=== PATIENT | male | born 1970 | race Caucasian/White ===

== ENCOUNTER 2016-12-25 07:56 | Inpatient (IN) | payer MEDICARE, MEDICAID ==
[2016-12-25 08:01] VITALS: BMI 23.6
--- NOTE | 2016-12-25 10:27 | ED PDOC ---
HPI: Psych/Substance Abuse Time Seen by Provider: 12/25/16 08:21 Chief Complaint (Nursing): Psychiatric Evaluation Chief Complaint (Provider): depression History Per: Patient History/Exam Limitations: no limitations Onset/Duration Of Symptoms: Days (x3 ) Additional Complaint(s): Isael Valladares is a 46 y/o male, with a past medical history of diabetes, hypertension , depression, schizophrenia, and drug abuse, who presents to the emergency department via EMS complaining of being depressed and angry ongoing for x3 days. Patient denies any suicidal ideation, homicidal ideation, hallucinations or medical complaints. Patient went to the police department complaining of depression which prompted police to call EMS and have him transported to ED. PMD: none provided Past Medical History Reviewed: Historical Data, Nursing Documentation, Vital Signs Vital Signs: Last Vital Signs Temp 97 F L 12/25/16 08:00 Pulse 110 H 12/25/16 08:00 Resp BP 141/91 H 12/25/16 08:00 Pulse Ox 99 12/25/16 08:00 - Medical History PMH: Anxiety, Bipolar Disorder, Depression, Diabetes, HTN, Schizophrenia Denies: Hepatitis, HIV, Chronic Kidney Disease, Seizures, Sexually Transmitted Disease - Surgical History Surgical History: Appendectomy - Family History Family History: States: Unknown Family Hx - Immunization History Hx Tetanus Toxoid Vaccination: No Hx Influenza Vaccination: No Hx Pneumococcal Vaccination: No - Home Medications Home Medications: Ambulatory Orders Medication Instructions Recorded Divalproex [Depakote ER] 500 mg PO BID 12/25/16 Glimepiride [Amaryl] 1 mg PO DAILY 12/25/16 MetFORMIN [glucoPHAGE] 1,000 mg PO BID 12/25/16 Metoprolol Tartrate [Lopressor] 25 mg PO DAILY 12/25/16 OLANZapine [Zyprexa] 10 mg PO HS 12/25/16 Olanzapine [Zyprexa] 2.5 mg PO HS 12/25/16 traZODone [Desyrel] 100 mg PO HS 12/25/16 - Allergies Allergies/Adverse Reactions: Allergies Allergy/AdvReac Type Severity Reaction Status Date / Time FISH Allergy Mild RASH Verified 09/25/16 14:46 lithium Allergy RASH Verified 09/25/16 14:46 Review of Systems ROS Statement: Except As Marked, All Systems Reviewed And Found Negative Psych: Positive for: Depression, Other (angry. no homicidal ideation, no hallucination ). Negative for: Suicidal ideation Physical Exam - Reviewed Nursing Documentation Reviewed: Yes Vital Signs Reviewed: Yes - Physical Exam Appears: Positive for: Well, Non-toxic, No Acute Distress Head Exam: Positive for: ATRAUMATIC, NORMAL INSPECTION, NORMOCEPHALIC Skin: Positive for: Normal Color, Warm, DRY Eye Exam: Positive for: EOMI, Normal appearance, PERRL ENT: Positive for: Normal ENT Inspection Neck: Positive for: Normal, Painless ROM Cardiovascular/Chest: Positive for: Regular Rate, Rhythm Respiratory: Positive for: CNT, Normal Breath Sounds Gastrointestinal/Abdominal: Positive for: Normal Exam, Bowel Sounds, Soft Back: Positive for: Normal Inspection Extremity: Positive for: Normal ROM Neurologic/Psych: Positive for: Alert, Oriented - Laboratory Results Result Diagrams: 12/25/16 10:39 12/25/16 10:39 - ECG O2 Sat by Pulse Oximetry: 99 (RA) Pulse Ox Interpretation: Normal Medical Decision Making Medical Decision Making: Initial Impressions: Depression with differential diagnosis of psychosis Initial Plan: --Comp metabolic panel --alcohol serum --crisis evaluation --Urine drug screen --urine dipstick --CBC w/ differential --reevaluation Vital signs are stable. Labs reviewed. In my opinion there are no current acute medical conditions that contraindicate the placement of this patient in a psychiatric unit. Scribe Attestation: Documented by Zulma Cartagena, acting as a scribe for Alyssa Fernandez MD. Provider Scribe Attestation: All medical record entries made by the Scribe were at my direction and personally dictated by me. I have reviewed the chart and agree that the record accurately reflects my personal performance of the history, physical exam, medical decision making, and the department course for this patient. I have also personally directed, reviewed, and agree with the discharge instructions and disposition. Disposition - Clinical Impression Clinical Impression: Bipolar disorder, Alcohol abuse - Patient ED Disposition Is Patient to be Admitted: Yes Doctor Will See Patient In The: Hospital Counseled Patient/Family Regarding: Studies Performed, Diagnosis, Need For Followup - Disposition Disposition Time: 12:54 Condition: FAIR - Pt Status Changed To: Hospital Disposition Of: Inpatient - Admit Certification Admit to Inpatient:: After my assessment, the patient will require hospitalization for at least two midnights. This is because of the severity of symptoms shown, intensity of services needed, and/or the medical risk in this patient being treated as an outpatient. - POA Present On Arrival: None
[2016-12-25 10:49] LABS: BASO % 1.3 % (0.0-2.0); EOS # 0.1 K/uL (0.0-0.7); EOS % 1.6 % (0.0-4.0); HEMOGLOBIN 14.5 g/dL (12.0-18.0); LYMPH # 1.2 K/uL (1.0-4.3); LYMPH % 36.9 % (20.0-40.0); MEAN CELL VOLUME 102.7 fl (80.0-94.0); MEAN CORPUSCULAR HEMOGLOBIN 35.1 pg (27.0-31.0); MEAN CORPUSCULAR HGB CONC 34.2 g/dL (33.0-37.0); MEAN PLATELET VOLUME 7.1 fl (7.2-11.7); MONO # 0.6 K/uL (0.0-0.8); MONO % 19.8 % (0.0-10.0); NEUT # 1.3 K/uL (1.8-7.0); NEUT % 40.4 % (50.0-75.0); NRBC % 0.1 % (0.0-0.0); RBC 4.14 Mil/uL (4.40-5.90); RED CELL DISTRIBUTION WIDTH 13.3 % (11.5-14.5); WHITE BLOOD COUNT 3.2 K/uL (4.8-10.8)
[2016-12-25 11:04] LABS: ALB/GLOB RATIO 1.4 (1.0-2.1); ALBUMIN 3.8 g/dL (3.5-5.0); ALT/SGPT 160 U/L (21-72); AST/SGOT 350 U/L (17-59); CALCIUM 8.8 mg/dL (8.4-10.2); GFR AFRICAN-AMERICAN > 60; GFR NON-AFRICAN AMERICAN > 60
[2016-12-25 11:05] LABS: BLOOD UREA NITROGEN < 2 mg/dl (9-20)
[2016-12-25 11:09] LABS: BARBITURATES, UR NEGATIVE (NEGATIVE); BENZODIAZEPINES, UR NEGATIVE (NEGATIVE); OPIATES, UR NEGATIVE (NEGATIVE); PHENCYCLIDINE, UR NEGATIVE (NEGATIVE)
[2016-12-25] MEDS ORDERED: DiphenhydrAMINE 50 mg/ml Inj ONE (13:37)
[2016-12-25 15:56] VITALS: O2SAT 98
[2016-12-25] MEDS ORDERED: Magnesium Hydroxide Susp 30 ml UD PO PRN (16:07)
[2016-12-25] MEDS ORDERED: DiphenhydrAMINE 50 mg/ml Inj IM PRN (16:07)
[2016-12-25] MEDS ORDERED: Alum-Mag Hydrox-Simethicone Susp (30 mL) PO PRN (16:07)
[2016-12-25] MEDS: Multivitamin With Minerals Tab PO SCH (17:41)
--- NOTE | 2016-12-25 19:36 | CP.PCM.CON ---
History of Present Illness - History of Present Illness History of Present Illness: 46 yo M w PMHx of Anxiety, Bipolar Disorder, Depression, Diabetes, HTN, and Schizophrenia is admitted due to three day h/o depression and anger. He denies any thoughts of hurting himself or others, as well as any visual or auditory hallucinations. Pt states he went to the police in hopes that he would receive attention and help for his depression. He denies fevers/chills, nausea, vomiting , diarrhea, constipation, dizziness, lightheadedness, chest pain, palpitations, SOB, dyspnea, cough, abdominal pain, hematuria, dysuria, hematochezia, melena, or myalgias. PMD: Dr Krish Lindquist occup ther: Reinier Sheppard PMHx: Anxiety, Bipolar Disorder, Depression, Diabetes, HTN, Schizophrenia PSHx: Appendectomy Allergy: [place] SHx: chronic etoh FHx: unknown Review of Systems - Review of Systems All systems: reviewed and no additional remarkable complaints except (see HPI) Past Patient History - Infectious Disease Hx of Infectious Diseases: None - Tetanus Immunizations Tetanus Immunization: Unknown - Past Medical History & Family History Past Medical History?: Yes - Past Social History Smoking Status: Current Some Days Smoker - CARDIAC Hx Hypertension: Yes - PULMONARY Hx Respiratory Disorders: No Hx Tuberculosis: No - NEUROLOGICAL Hx Seizures: No - HEENT Hx HEENT Problems: No - RENAL Hx Chronic Kidney Disease: No - ENDOCRINE/METABOLIC Hx Endocrine Disorders: Yes (DM type 2) Hx Diabetes Mellitus Type 2: Yes - HEMATOLOGICAL/ONCOLOGICAL Hx Human Immunodeficiency Virus (HIV): No - INTEGUMENTARY Hx Dermatological Problems: No - MUSCULOSKELETAL/RHEUMATOLOGICAL Hx Musculoskeletal Disorders: Yes Hx Falls: Yes - GASTROINTESTINAL Hx Gastrointestinal Disorders: No - GENITOURINARY/GYNECOLOGICAL Hx Sexually Transmitted Disorders: No - PSYCHIATRIC Hx Anxiety: Yes Hx Bipolar Disorder: Yes Hx Depression: Yes Hx Schizophrenia: Yes Hx Substance Use: Yes - SURGICAL HISTORY Hx Appendectomy: Yes - ANESTHESIA Hx Anesthesia: Yes Hx Anesthesia Reactions: No Meds Allergies/Adverse Reactions: Allergies Allergy/AdvReac Type Severity Reaction Status Date / Time FISH Allergy Mild RASH Verified 09/25/16 14:46 lithium Allergy RASH Verified 09/25/16 14:46 - Medications Medications: Current Medications Acetaminophen (Tylenol 325mg Tab) 650 mg PO Q4 PRN PRN Reason: pain level 1-10/10 Al Hydrox/Mg Hydrox/Simethicone (Maalox Plus 30 Ml) 30 ml PO Q4 PRN PRN Reason: Dyspepsia Diphenhydramine HCl (Benadryl) 50 mg PO Q6 PRN PRN Reason: Extrapyramidal Symptoms Diphenhydramine HCl (Benadryl) 50 mg IM Q6 PRN PRN Reason: Extrapyramidal S/S Unable PO Folic Acid (Folic Acid) 1 mg PO DAILY [facility] Haloperidol (Haldol) 5 mg PO Q4 PRN PRN Reason: Agitation Haloperidol Lactate (Haldol) 5 mg IM Q4 PRN PRN Reason: Agitation, Unable to Take PO Home Med (Glimepiride [Amaryl]) 1 mg PO BRK [facility] Lorazepam (Ativan) 1 mg PO TID [facility] Last Admin: 12/25/16 16:21 Dose: 1 mg Lorazepam (Ativan) 2 mg IM Q4 PRN PRN Reason: Anxiety/Agitation,Unable PO Lorazepam (Ativan) 2 mg PO Q4 PRN PRN Reason: Anxiety/Agitation Magnesium Hydroxide (Milk Of Magnesia) 30 ml PO HS PRN PRN Reason: Constipation Metformin HCl (Glucophage) 1,000 mg PO BID [facility] Metoprolol Tartrate (Lopressor) 25 mg PO DAILY [facility] Multivitamins/Minerals (Therapeutic-M Tab) 1 tab PO DAILY [facility] Last Admin: 12/25/16 17:41 Dose: 1 tab Thiamine HCl (Vitamin B1 Tab) 100 mg PO DAILY [facility] Last Admin: 12/25/16 17:42 Dose: 100 mg Physical Exam - Constitutional Appears: Non-toxic, No Acute Distress - Head Exam Head Exam: ATRAUMATIC, NORMOCEPHALIC - Eye Exam Eye Exam: EOMI Pupil Exam: PERRL - ENT Exam ENT Exam: Mucous Membranes Moist - Neck Exam Neck exam: Positive for: Full Rom - Respiratory Exam Respiratory Exam: Clear to Auscultation Bilateral, NORMAL BREATHING PATTERN. absent: Wheezes, Respiratory Distress - Cardiovascular Exam Cardiovascular Exam: REGULAR RHYTHM, +S1, +S2 - GI/Abdominal Exam GI & Abdominal Exam: Soft. absent: Distended, Guarding, Tenderness - Extremities Exam Extremities exam: Negative for: calf tenderness, pedal edema - Back Exam Back exam: NORMAL INSPECTION - Neurological Exam Neurological exam: Alert, Oriented x3 - Skin Skin Exam: Dry, Normal Color, Warm Results - Vital Signs Recent Vital Signs: Last Vital Signs Temp 97.9 F 12/25/16 16:07 Pulse 130 H 12/25/16 16:07 Resp 20 12/25/16 16:07 BP 156/54 H 12/25/16 16:07 Pulse Ox 98 12/25/16 15:45 - Labs Result Diagrams: 12/25/16 10:39 12/25/16 10:39 Assessment & Plan - Assessment and Plan (Free Text) Plan: 46 yo M w PMHx of Anxiety, Bipolar Disorder, Depression, Diabetes, HTN, and Schizophrenia is admitted due to three day h/o depression and anger 1) Anger/Depression within setting of previous Psychiatric diagnoses -Follow recommendations from Psychiatry 2) etoh abuse -Ativan 2mg IM Q4H PRN -Ativan 2mg PO Q4H PRN -Thiamine 100mg PO Daily -Multivitamin 1 tab PO Daily -Folic Acid 1mg PO Daily -Alcohol Level: 117 -f/u s/s of Detox 3) Elevated LFTs -AST/ALT: 350/160 -Has previous h/o elevated LFTs; likely from chronic etoh abuse -f/u PT/INR/PTT -f/u BMP in AM -f/u LFTs in AM -f/u Hepatitis Panel 4) DM -Controlled -Metformin 1,000mg BIDWM -Glipizide SR 2.5mg PO BRK -Lispro Sliding Scale -f/u Lipid Panel -f/u FS ACHS 5) HTN -Metoprolol 25mg PO Daily -f/u Vitals 6) DVT Prophylaxis -Lovenox 40mg SC Daily
[2016-12-25] MEDS ORDERED: Insulin Regular 100 units/ml SC SCH (22:00)
[2016-12-26 07:29] LABS: HEMOGLOBIN 14.8 g/dL (12.0-18.0); MEAN CELL VOLUME 103.2 fl (80.0-94.0); MEAN CORPUSCULAR HEMOGLOBIN 34.5 pg (27.0-31.0); MEAN CORPUSCULAR HGB CONC 33.4 g/dL (33.0-37.0); RBC 4.29 Mil/uL (4.40-5.90); RED CELL DISTRIBUTION WIDTH 12.8 % (11.5-14.5); WHITE BLOOD COUNT 3.5 K/uL (4.8-10.8)
[2016-12-26 07:52] LABS: ALB/GLOB RATIO 1.3 (1.0-2.1); ALBUMIN 3.6 g/dL (3.5-5.0); ALT/SGPT 130 U/L (21-72); AST/SGOT 218 U/L (17-59); BILIRUBIN,DIRECT 0.4 mg/ml (0.0-0.4); BLOOD UREA NITROGEN 3 mg/dl (9-20); GFR AFRICAN-AMERICAN > 60; GFR NON-AFRICAN AMERICAN > 60; HDL CHOLESTEROL 94 MG/DL (30-70)
[2016-12-26 07:59] LABS: INR 1.1 (0.9-1.2); PARTIAL THROMBOPLASTIN TIME 35.1 Seconds (25.6-37.1); PROTHROMBIN TIME 12.2 Seconds (9.8-13.1)
[2016-12-26] MEDS: Insulin Regular 100 units/ml SC SCH ×4 (08:00→21:07)
[2016-12-26 08:03] LABS: LDL CHOLESTEROL 41 mg/dL (0-129)
[2016-12-26 08:08] LABS: T4 9.24 ug/dl (5.5-11.0)
[2016-12-26] MEDS ORDERED: Enoxaparin 40 mg Syringe SC SCH (09:00)
[2016-12-26] MEDS: Multivitamin With Minerals Tab PO SCH (09:40)
[2016-12-26] MEDS: GlipiZIDE 2.5 mg SR Tab PO SCH (09:44)
--- NOTE | 2016-12-26 12:07 | PCM.PSYCH ---
Initial Psychiatric Evaluation - Initial Psychiatric Evaluation Type of Admission: Voluntary Legal Status: Capacity Chief Complaint (in patient's own words): i have a lot of stress Patient's Reaction to Hospitalization: cooperative History of Present Illness and Precipitating Events: pt states he is having stress for the last 2 days and needs to get away. he states he was feeling anxious and overwhelmed. he is vague and evasive about his symptoms. he is internally preoccupied but is denying any a/v hallucinations. he is reporting that he enjoys going to his adult day program and wants to return. he is vague about his treatment goals. he is unkempt. pt is minimizing his alcohol use, which is problematic. he states he lives alone. pt denies suicidal thoughts. he is tremulous during the treatment team today, but denying alcohol withdrawal. Current Medications: Active Medications Generic Name Dose Route Start Last Admin Trade Name Freq PRN Reason Stop Dose Admin Acetaminophen 650 mg 12/25/16 16:07 Tylenol 325mg Tab PO Q4 PRN pain level 1-10/10 Al Hydrox/Mg Hydrox/Simethicone 30 ml 12/25/16 16:07 Maalox Plus 30 Ml PO Q4 PRN Dyspepsia Diphenhydramine HCl 50 mg 12/25/16 16:07 Benadryl PO Q6 PRN Extrapyramidal Symptoms Diphenhydramine HCl 50 mg 12/25/16 16:07 Benadryl IM Q6 PRN Extrapyramidal S/S Unable PO Divalproex Sodium 500 mg 12/26/16 17:00 Shawn Linda(*Bid*) PO BID [facility] Folic Acid 1 mg 12/26/16 09:00 12/26/16 09:43 Folic Acid PO 1 mg DAILY [facility] Administration Glipizide 2.5 mg 12/26/16 08:00 12/26/16 09:44 Glucotrol Xl PO 2.5 mg BRK [facility] Administration Haloperidol 5 mg 12/25/16 16:07 Haldol PO Q4 PRN Agitation Haloperidol Lactate 5 mg 12/25/16 16:07 Haldol IM Q4 PRN Agitation, Unable to Take PO Insulin Human Regular 0 units 12/26/16 04:20 Humulin R SC ACHS [facility] Protocol Lorazepam 1 mg 12/25/16 17:00 12/26/16 09:43 Ativan PO 1 mg TID [facility] Administration Lorazepam 2 mg 12/25/16 16:07 Ativan IM Q4 PRN Anxiety/Agitation,Unable PO Lorazepam 2 mg 12/25/16 16:07 Ativan PO Q4 PRN Anxiety/Agitation Magnesium Hydroxide 30 ml 12/25/16 16:07 Milk Of Magnesia PO HS PRN Constipation Metformin HCl 1,000 mg 12/26/16 08:00 12/26/16 09:41 Glucophage PO 1,000 mg BIDWM [facility] Administration Metoprolol Tartrate 25 mg 12/26/16 09:00 12/26/16 09:41 Lopressor PO 25 mg DAILY [facility] Administration Multivitamins/Minerals 1 tab 12/25/16 16:00 12/26/16 09:40 Therapeutic-M Tab PO 1 tab DAILY [facility] Administration Olanzapine 10 mg 12/26/16 22:00 Zyprexa PO HS [facility] Thiamine HCl 100 mg 12/25/16 16:00 12/26/16 09:41 Vitamin B1 Tab PO 100 mg DAILY [facility] Administration Past Psychiatric History - Past Psychiatric History Previous Treatment History: Inpatient Prior Professional Help: matt past admisions History of Abuse: denies History of ETOH/Drug Use: drinks alcohol daily. denies use of other substances. states he smokes cigarettes History of Family Illness: denies Pertinent Medical Hx (Current Medical&Sleep Prob, Allergies): Allergies Allergy/AdvReac Type Severity Reaction Status Date / Time FISH Allergy Mild RASH Verified 09/25/16 14:46 lithium Allergy RASH Verified 09/25/16 14:46 Divalproex [Depakote ER] 500 mg PO BID 12/25/16 Glimepiride [Amaryl] 1 mg PO DAILY 12/25/16 MetFORMIN [glucoPHAGE] 1,000 mg PO BID 12/25/16 Metoprolol Tartrate [Lopressor] 25 mg PO DAILY 12/25/16 OLANZapine [Zyprexa] 10 mg PO HS 12/25/16 Olanzapine [Zyprexa] 2.5 mg PO HS 12/25/16 traZODone [Desyrel] 100 mg PO HS 12/25/16 Review of Systems - Psychiatric Psychiatric: As Per HPI, Abnormal Sleep Pattern, Anhedonia, Anxiety, Depression , Difficulty Concentrating, Irritability Mental Status Examination - Personal Presentation Personal Presentation: Looks stated age Additional comments: unkempt, tremulous - Affect Affect: Constricted - Motor Activity Motor Activity: Calm - Reliability in Providing Information Reliability in Providing Information: Poor, due to alteration in thoughts - Speech Speech: Other (evasive, vague) - Mood Mood: Depressed, Anxious - Formal Thought Process Formal Thought Process: Delusions, Loosening of associations - Obsessions/Compulsions Obsessions: No Compulsions: No - Cognitive Functions Orientation: Person, Place, Situation, Time Sensorium: Alert Attention/Concentration: Attentive Abstract Thinking: Rose Estimate of Intelligence: Average Judgement: Intact, as evidence by: Insight regarding need for hospitalization Memory: Recent intact, as evidence by: Ability to recall events of the day, Remote intact, as evidenced by: Abilit to recall sig. life events - Risk Risk: Suicidal (denies plan intent currently), Withdrawal - Strength & Assets Inventory Strength & Assets Inventory: Family support - Limitations Limitations: Living alone DSM 5 DX - DSM 5 DSM 5 Diagnosis: schizoaffective disorder alcohol dependence - Recommended/Plan of Treatment Treatment Recommendations and Plan of Treatment: admit to 3[facility] for safety and observation gather collateral informatin provide supportive therapy adjust medications- ativan for etoh withdrawal. and restart home meds hospitalist consult disposition planning Projected ELOS: 3-5 days Prognosis: fair - Smoking Cessation Smoking Cessation Initiated: No Reason for not providing: declines
[2016-12-26 13:09] LABS: HEPATITIS B SURFACE AG NEGATIVE (NEGATIVE)
[2016-12-26 13:14] LABS: HEPATITIS A IGM NEGATIVE (NEGATIVE)
[2016-12-26 13:15] LABS: HEPATITIS B CORE AB NEGATIVE (NEGATIVE)
[2016-12-26 13:26] LABS: HEPATITIS C ANTIBODY NEGATIVE (NEGATIVE)
[2016-12-26] MEDS: Divalproex 500 mg DR(BID formulation) PO SCH (17:22)
[2016-12-27] MEDS: Insulin Regular 100 units/ml SC SCH ×5 (06:47→21:07)
[2016-12-27] MEDS: Multivitamin With Minerals Tab PO SCH (09:06)
[2016-12-27] MEDS: Divalproex 500 mg DR(BID formulation) PO SCH ×2 (09:07→17:24)
[2016-12-27] MEDS: GlipiZIDE 2.5 mg SR Tab PO SCH (09:07)
--- NOTE | 2016-12-27 10:24 | PCM.PYCHPN ---
Psychiatric Progress Note - Psychiatric Progress Note Patient seen today, length of contact: discussed with team Patient Chief Complaint: i feel okay Problems Identified/Issues Discussed: pt states he is not feeling as shaky today. reports improved sleep. denies feeling depressed. denies medication side effects, denies other withdrawal symptoms. Medication Change: Yes (inc. zyprexa) Medical Record Reviewed: Yes Mental Status Examination - Cognitive Function Orientation: Person, Place, Situation, Time Memory: Intact Attention: WNL Concentration: WNL Association: WNL Fund of Knowledge: [facility] Decription of patient's judgement and insights: fair - Mood Mood: Depressed, Anxious - Affect Affect: Constricted - Formal Thought Process Formal Thought Process: Delusions, Loosening of associations Psychotic Thoughts and Behaviors: denies a/v hallucinations, but is internally preoccupied, appears paranoid/ guarded - Suicidal Ideation Suicidal Ideation: No - Homicidal Ideation Homicidal Ideation: No Goal/Treatment Plan - Goal/Treatment Plan Need for Continued Stay: Remain at risks for inpatient hospitalization, Severe functional impairment Progress Toward Problem(s) and Goals/Treatment Plan: schizoaffective disorder alcohol dependence will start to taper ativan today increase zyprexa return to his adult day program next week. Estimated Date of D/C: 12/31/16
[2016-12-28 08:05] LABS: ALB/GLOB RATIO 1.3 (1.0-2.1); ALBUMIN 3.5 g/dL (3.5-5.0); ALT/SGPT 106 U/L (21-72); AST/SGOT 130 U/L (17-59); BLOOD UREA NITROGEN 5 mg/dl (9-20); CALCIUM 9.4 mg/dL (8.4-10.2); GFR AFRICAN-AMERICAN > 60; GFR NON-AFRICAN AMERICAN > 60
[2016-12-28] MEDS: Insulin Regular 100 units/ml SC SCH ×4 (08:44→21:40)
[2016-12-28] MEDS: GlipiZIDE 2.5 mg SR Tab PO SCH (10:39)
[2016-12-28] MEDS: Multivitamin With Minerals Tab PO SCH (10:39)
[2016-12-28] MEDS: Divalproex 500 mg DR(BID formulation) PO SCH ×2 (10:40→17:23)
[2016-12-28 22:40] LABS: FOLATE 13.5 ng/mL
[2016-12-29] MEDS: Insulin Regular 100 units/ml SC SCH ×4 (06:46→21:08)
[2016-12-29] MEDS: GlipiZIDE 2.5 mg SR Tab PO SCH (09:49)
[2016-12-29] MEDS: Divalproex 500 mg DR(BID formulation) PO SCH ×2 (09:49→17:44)
[2016-12-29] MEDS: Multivitamin With Minerals Tab PO SCH (09:50)
--- NOTE | 2016-12-29 12:39 | PCM.PYCHPN ---
Psychiatric Progress Note - Psychiatric Progress Note Patient seen today, length of contact: discussed with team Patient Chief Complaint: i want to go Problems Identified/Issues Discussed: pt isolates in room. less irritable. denies medication side effects/ denies withdrawal. no aggression or agitation. wants to return to his day program. Medication Change: Yes ( lower ativan) Medical Record Reviewed: Yes Mental Status Examination - Cognitive Function Orientation: Person, Place, Situation, Time Memory: Intact Attention: WNL Concentration: WNL Association: WNL Fund of Knowledge: [facility] Decription of patient's judgement and insights: fair - Mood Mood: Depressed, Anxious - Affect Affect: Constricted - Formal Thought Process Formal Thought Process: Delusions, Loosening of associations Psychotic Thoughts and Behaviors: denies a/v hallucinations. less internally preoccupied - Suicidal Ideation Suicidal Ideation: No - Homicidal Ideation Homicidal Ideation: No Goal/Treatment Plan - Goal/Treatment Plan Need for Continued Stay: Remain at risks for inpatient hospitalization, Severe functional impairment Progress Toward Problem(s) and Goals/Treatment Plan: schizoaffective disorder alcohol dependence will continue to taper ativan today continue zyprexa return to his adult day program next week. Estimated Date of D/C: 12/30/16
--- NOTE | 2016-12-29 16:34 | CP.PCM.PN ---
Subjective - Date & Time of Evaluation Date of Evaluation: 12/29/16 Time of Evaluation: 15:00 - Subjective Subjective: Patient seen and examined at bedside. He is laying comfortably in bed and appears in no acute distress. Staff report patient has been internally preoccupied and has been withdrawn and anxious isolating himself from group activities. He is cooperative with assessment and denies any headaches, fevers, chills, chest pain, sob, abdominal pain, nausea or vomiting. He has been taking his medications as prescribed for DM2 and HTN with no adverse effects noted. Objective - Vital Signs/Intake and Output Vital Signs (last 24 hours): Temp Pulse Resp BP Pulse Ox 96.6 F L 82 18 134/94 H 98 12/27/16 17:00 12/29/16 09:50 12/27/16 17:00 12/29/16 09:50 12/25/16 15:45 - Medications Medications: Current Medications Al Hydrox/Mg Hydrox/Simethicone (Maalox Plus 30 Ml) 30 ml PO Q4 PRN PRN Reason: Dyspepsia Diphenhydramine HCl (Benadryl) 50 mg PO Q6 PRN PRN Reason: Extrapyramidal Symptoms Last Admin: 12/28/16 22:54 Dose: 50 mg Diphenhydramine HCl (Benadryl) 50 mg IM Q6 PRN PRN Reason: Extrapyramidal S/S Unable PO Divalproex Sodium (Depakote Dr(*Bid*)) 500 mg PO BID [facility] Last Admin: 12/29/16 09:49 Dose: 500 mg Folic Acid (Folic Acid) 1 mg PO DAILY [facility] Last Admin: 12/29/16 09:49 Dose: 1 mg Glipizide (Glucotrol Xl) 2.5 mg PO BRK [facility] Last Admin: 12/29/16 09:49 Dose: 2.5 mg Haloperidol (Haldol) 5 mg PO Q4 PRN PRN Reason: Agitation Last Admin: 12/28/16 22:54 Dose: 5 mg Haloperidol Lactate (Haldol) 5 mg IM Q4 PRN PRN Reason: Agitation, Unable to Take PO Ibuprofen (Motrin Tab) 600 mg PO Q6 PRN PRN Reason: Pain, moderate (4-7) Insulin Human Regular (Humulin R) 0 units SC ACHS [facility] PRN Reason: Protocol Last Admin: 12/29/16 14:11 Dose: Not Given Lorazepam (Ativan) 2 mg IM Q4 PRN PRN Reason: Anxiety/Agitation,Unable PO Lorazepam (Ativan) 2 mg PO Q4 PRN PRN Reason: Anxiety/Agitation Lorazepam (Ativan) 0.5 mg PO BID [facility] Magnesium Hydroxide (Milk Of Magnesia) 30 ml PO HS PRN PRN Reason: Constipation Metformin HCl (Glucophage) 1,000 mg PO BIDWM [facility] Last Admin: 12/29/16 09:50 Dose: 1,000 mg Metoprolol Tartrate (Lopressor) 25 mg PO DAILY [facility] Last Admin: 12/29/16 09:50 Dose: 25 mg Multivitamins/Minerals (Therapeutic-M Tab) 1 tab PO DAILY [facility] Last Admin: 12/29/16 09:50 Dose: 1 tab Olanzapine (Zyprexa) 15 mg PO HS [facility] Last Admin: 12/28/16 21:12 Dose: 15 mg Thiamine HCl (Vitamin B1 Tab) 100 mg PO DAILY [facility] Last Admin: 12/29/16 09:49 Dose: 100 mg - Labs Labs: 12/26/16 07:00 12/28/16 06:00 PT 12.2 Seconds (9.8-13.1) 12/26/16 07:00 INR 1.1 (0.9-1.2) 12/26/16 07:00 APTT 35.1 Seconds (25.6-37.1) 12/26/16 07:00 - Constitutional Appears: Non-toxic, No Acute Distress - Head Exam Head Exam: ATRAUMATIC, NORMAL INSPECTION, NORMOCEPHALIC - Eye Exam Eye Exam: EOMI, PERRL - ENT Exam ENT Exam: Mucous Membranes Moist - Respiratory Exam Respiratory Exam: Clear to Ausculation Bilateral, NORMAL BREATHING PATTERN. absent: Rales, Rhonchi, Wheezes - Cardiovascular Exam Cardiovascular Exam: REGULAR RHYTHM, RRR, +S1, +S2 - GI/Abdominal Exam GI & Abdominal Exam: Soft, Normal Bowel Sounds. absent: Distended, Tenderness Additional comments: Well healed surgical scar present on right lower abdomen from prior appendectomy. - Extremities Exam Extremities Exam: absent: Calf Tenderness, Pedal Edema - Neurological Exam Neurological Exam: Alert, Awake, Oriented x3 - Psychiatric Exam Psychiatric exam: Flat Affect - Skin Skin Exam: Dry, Warm Assessment and Plan - Assessment and Plan (Free Text) Assessment: Patient is a 46 y/o male with PMH including Anxiety, Bipolar Disorder, Depression, Schizophrenia, NIDDM2 and HTN who was admitted due to three day history of depression and anger. Plan: Anxiety, Depression, Schizoaffective Disorder -Treatment as per psychiatry ETOH Abuse -No acute withdrawal, patient is admission day 4 -Thiamine 100mg PO Daily -Multivitamin 1 tab PO Daily Elevated LFTs/Transaminitis -AST/ALT has been trending downwards since admission: 350/160 > 130/106 -Likely secondary to ETOH abuse (Initial ETOH level elevated at 117) -PT/INR/PTT within normal limits -Hepatitis Panel negative -HIV 1/2 negative NIDDM2 -Well Controlled -Last HgbA1c: 6.0% on 12/26/16 -Continu home Metformin 1,000mg BIDWM -Glipizide SR 2.5mg PO BRK -Lispro Sliding Scale -Lipid panel WNL HTN -Likely aggravated by anxiety -Continue Metoprolol 25mg PO Daily
[2016-12-29 16:37] VITALS: RESP 20
[2016-12-30] MEDS: Insulin Regular 100 units/ml SC SCH (06:31)
[2016-12-30] MEDS: Multivitamin With Minerals Tab PO SCH (08:59)
[2016-12-30] MEDS: Divalproex 500 mg DR(BID formulation) PO SCH (08:59)
[2016-12-30] MEDS: GlipiZIDE 2.5 mg SR Tab PO SCH (09:00)
[2016-12-30 09:01] VITALS: BP 107/78; PULSE 101
[2016-12-30 09:17] VITALS: TEMP 97.5
--- NOTE | 2016-12-30 10:55 | PCM.PYCHDC ---
Mental Status Examination - Mental Status Examination Orientation: Person, Place, Situation, Time Memory: Intact Mood: Neutral Affect: Broad Speech: Appropriate Attention: WNL Concentration: WNL Association: WNL Fund of Knowledge: WNL Formal Thought Process: No Impairment Description of patient's judgement and insight: fair Psychotic Thoughts and Behaviors: denies a/v hallucinations. less internally preoccupied Suicidal Ideation: No Current Homicidal Ideation?: No Plan: pt denies any suicidal or homicidal thoughts/plans or intent Discharge Summary - Discharge Note Reason for Hospitalization: pt drinking alcohol, non-adherent with meds, expressing suicidal thoughts. Psychiatric History (includes Medical, Family, Personal Hx): history of schizoaffective disorder, alcohol dependence Laboratory Data: Abnormal Lab Results 12/29/16 16:48 POC Glucose (mg/dL) 144 H Consultations:: List each consultation separately and include: 1. Reason for request. 2. Findings. 3. Follow-up Consultations: seen by hospitalist Summary of Hospital Course include:: 1. Description of specific treatment plan utilized for patients during their course of treatmen. 2. Summarize the time- course for resolution of acute symptoms and/or regressed behaviors. 3. Describe issues identified and worked on during hospitalization. 4. Describe medication utilized. 5. Describe medical problems identified and treated. 6. Reassessment of suicide risk Summary of Hospital Course: pt states he is having stress for the last 2 days and needs to get away. he states he was feeling anxious and overwhelmed. he is vague and evasive about his symptoms. he is internally preoccupied but is denying any a/v hallucinations. he is reporting that he enjoys going to his adult day program and wants to return. he is vague about his treatment goals. he is unkempt. pt is minimizing his alcohol use, which is problematic. he states he lives alone. pt denies suicidal thoughts. he is tremulous during the treatment team today, but denying alcohol withdrawal. hospital course pt was admitted to [facility] and placed on routine safety protocols pt was started on his home medications and the dose titrated up to current level and was well tolerated. he was seen by the medical records tech he was detoxed with ativan and there were no withdrawal complications he was adherent with his treatment and was denying any suicidal or homicidal thoughts at the time of discharge at the time of discharge he was expressing the intention to return to his adult day program and his outpt providers and indicated he would go to AA meetings. - Final Diagnosis (DSM 5) Condition upon Discharge: FAIR DSM 5: schizoaffective disorder, bipolar type alcohol dependence Disposition: HOME/ ROUTINE Follow-up Treatment Plan: follow up with aftercare as directed take medications as prescribed do not use alcohol, tobacco or other illicit substances call 911 if any suicidal or homicidal thoughts attend AA meetings daily follow up with your primary care doctor Prescriptions/Medication Reconciliation: Divalproex [Depakote ER] 500 mg PO BID #60 Folic Acid 1 mg PO DAILY #30 tab GlipiZIDE SR [Glucotrol XL] 2.5 mg PO BRK #30 tab MetFORMIN [glucoPHAGE] 1,000 mg PO BID #60 Metoprolol Tartrate [Lopressor] 25 mg PO DAILY #30 Multimineral/Multivitamin [Therapeutic-M Tab] 1 tab PO DAILY #30 tab Olanzapine [Zyprexa] 15 mg PO HS #30 tablet Thiamine [Vitamin B1 Tab] 100 mg PO DAILY #30 tab - Smoking Cessation Smoking Cessation Medication prescribed: No Reason for not providing: declines - Antipsychotic Medications Pt discharged on 2 or more routine antipsychotic medications: Yes
== END 2016-12-30 11:44 | disposition home or self-care (01) | DRG 885 ==
LOC: H.ER 07:56 → H.ERHOLD 12:54 → H.PSYCH 15:45
PROVIDERS: ADMIT Psychiatry & Neurology Psychiatry; ATTEND Psychiatry & Neurology Psychiatry
PROC: GZ51ZZZ Individual Psychotherapy, Behavioral (ICD-10-PCS; principal; 2016-12-25)
DX: F25.0 Schizoaffective disorder, bipolar type (principal); E11.9 Type 2 diabetes mellitus without complications; R45.851 Suicidal ideations; I10 Essential (primary) hypertension; F10.20 Alcohol dependence, uncomplicated; F17.210 Nicotine dependence, cigarettes, uncomplicated

== ENCOUNTER 2017-07-08 14:35 | Emergency (ER) | payer MEDICARE, MEDICAID ==
[2017-07-08 14:35] VITALS: BMI 23.6
[2017-07-08 14:39] VITALS: TEMP 98.1
[2017-07-08] MEDS ORDERED: Sodium Chloride 0.9% 1,000 ML IV STA ×2 (14:49→16:33)
--- NOTE | 2017-07-08 15:07 | ED PDOC ---
HPI: General Adult Time Seen by Provider: 07/08/17 14:43 Chief Complaint (Nursing): Dizziness/Lightheaded Chief Complaint (Provider): Tremors History Per: Patient History/Exam Limitations: no limitations Onset/Duration Of Symptoms: Days (x 1) Current Symptoms Are (Timing): Still Present Additional Complaint(s): Isael is a 47 y/o male with a history of schizophrenia and diabetes who was brought to the ED via EMS complaining of tremors that started yesterday and got worse today. Patient states that he recently started a new medication for schizophrenia but doesn't remember the name. He denies suicidal or homicidal ideation. Patient reports drinking today but denies drug use, hallucinations, focal weakness, blurry vision, or anxiety. PMD: None Provided (Can't remember name) Past Medical History Reviewed: Historical Data, Nursing Documentation, Vital Signs Vital Signs: Last Vital Signs Temp 98.1 F 07/08/17 14:37 Pulse 121 H 07/08/17 14:37 Resp 18 07/08/17 14:37 BP Pulse Ox 100 07/08/17 16:45 - Medical History PMH: Anxiety, Bipolar Disorder, Depression, Diabetes, HTN, Schizophrenia Denies: Hepatitis, HIV, Chronic Kidney Disease, Seizures, Sexually Transmitted Disease - Surgical History Surgical History: Appendectomy - Family History Family History: States: Unknown Family Hx - Immunization History Hx Tetanus Toxoid Vaccination: No Hx Influenza Vaccination: No Hx Pneumococcal Vaccination: No - Home Medications Home Medications: Ambulatory Orders Medication Instructions Recorded Benztropine [Cogentin] 1 mg PO DAILY 07/08/17 Divalproex [Depakote ER] 500 mg PO HS 07/08/17 Glipizide [Glipizide ER] 2.5 mg PO DAILY 07/08/17 Losartan [Cozaar] 25 mg PO DAILY 07/08/17 Olanzapine [Zyprexa] 15 mg PO HS 07/08/17 chlordiazePOXIDE [Chlordiazepoxide 25 mg PO Q6 PRN #10 cap 07/08/17 HCl] traZODone [Desyrel] 100 mg PO HS 07/08/17 - Allergies Allergies/Adverse Reactions: Allergies Allergy/AdvReac Type Severity Reaction Status Date / Time FISH Allergy Mild RASH Verified 07/08/17 14:36 lithium Allergy RASH Verified 07/08/17 14:36 Review of Systems ROS Statement: Except As Marked, All Systems Reviewed And Found Negative Eyes: Negative for: Vision Change (blurry vision) Neurological: Positive for: Other (tremors). Negative for: Weakness Psych: Negative for: Anxiety, Suicidal ideation (or homicidal ideation), Other ( hallucinations) Physical Exam - Reviewed Nursing Documentation Reviewed: Yes Vital Signs Reviewed: Yes - Physical Exam Appears: Positive for: Non-toxic, No Acute Distress Head Exam: Positive for: ATRAUMATIC, NORMOCEPHALIC Skin: Positive for: Warm, Dry Eye Exam: Positive for: EOMI, PERRL ENT: Negative for: Pharyngeal Erythema, Tonsillar Exudate Neck: Positive for: Painless ROM, Supple Cardiovascular/Chest: Positive for: Regular Rate, Rhythm, Chest Non Tender Respiratory: Positive for: Normal Breath Sounds. Negative for: Wheezing Gastrointestinal/Abdominal: Positive for: Soft. Negative for: Tenderness Back: Positive for: Normal Inspection. Negative for: Decreased ROM Extremity: Positive for: Normal ROM, Other (tremor bilateral arms, seems to improve when pt is lying in bed. Worsens with examination or with any intentional movements.) Lymphatic: Negative for: Adenopathy Neurologic/Psych: Positive for: Alert. Negative for: Motor/Sensory Deficits - Laboratory Results Result Diagrams: 07/08/17 15:00 07/08/17 15:00 - ECG O2 Sat by Pulse Oximetry: 100 (RA) Pulse Ox Interpretation: Normal Medical Decision Making Medical Decision Making: Time: 14:48 Initial Impression: Tremors; Differentials include anxiety, electrolyte abnormality, dehydration, adverse medication reaction Initial Plan: --EKG --Alcohol Serum --CMP --Creatine Phosphokinase --Urine Drug Screen --Lactic Acid --Magnesium --Phosphorous --Valproic Acid --Urine Dip --CBC --Blood Glucose Pt's pharmacy contacted. New medication is cogentin. Time: 16:27 --Based on lab results, ordered benadryl, mag-ox, and neutra-phos 7p Ativan also ordered with miniminal improvemdnt. Pt continues to be well otherwise. Anticipate pt's symptoms will resolved as medication wears off. Pt has h/o alcohol dependence. Will give librium for possible withdrawal symptoms. Advised to stop cogentin. --- Scribe~Attestation: Documented by Alvaro Saleh, acting as a scribe for Susan Malloy MD. Provider Scribe~Attestation: All medical record entries made by the Scribe were at my direction and personally dictated by me. I have reviewed the chart and agree that the record accurately reflects my personal performance of the history, physical exam, medical decision making, and the department course for this patient. I have also personally directed, reviewed, and agree with the discharge instructions and disposition. Disposition - Clinical Impression Clinical Impression: Alcohol abuse, Tremor Counseled Patient/Family Regarding: Studies Performed, Diagnosis, Need For Followup, Rx Given - Disposition Disposition: Routine/Home Disposition Time: 19:09 Condition: STABLE Prescriptions: chlordiazePOXIDE [Chlordiazepoxide HCl] 25 mg PO Q6 PRN #10 cap PRN Reason: tremors Instructions: Alcohol Dependence (ED) Forms: [employer] (Hebrew)
[2017-07-08 15:49] LABS: BASO # 0.1 K/uL (0.0-0.2); HEMOGLOBIN 13.8 g/dL (12.0-18.0); LYMPH # 1.2 K/uL (1.0-4.3); LYMPH % 29.8 % (20.0-40.0); MEAN CELL VOLUME 105.2 fl (80.0-94.0); MEAN CORPUSCULAR HEMOGLOBIN 36.2 pg (27.0-31.0); MEAN CORPUSCULAR HGB CONC 34.5 g/dL (33.0-37.0); MEAN PLATELET VOLUME 7.2 fl (7.2-11.7); MONO # 0.6 K/uL (0.0-0.8); NEUT # 2.2 K/uL (1.8-7.0); NEUT % 53.2 % (50.0-75.0); NRBC % 0.2 % (0.0-0.0); RBC 3.8 Mil/uL (4.40-5.90); WHITE BLOOD COUNT 4.1 K/uL (4.8-10.8)
[2017-07-08 16:15] LABS: ALB/GLOB RATIO 1.5 (1.0-2.1); ALBUMIN 4.4 g/dL (3.5-5.0); ALT/SGPT 113 U/L (21-72); AST/SGOT 353 U/L (17-59); BLOOD UREA NITROGEN 4 mg/dl (9-20); GFR AFRICAN-AMERICAN > 60; GFR NON-AFRICAN AMERICAN > 60; MAGNESIUM 1.5 MG/DL (1.6-2.3)
[2017-07-08] MEDS ORDERED: DiphenhydrAMINE 50 mg/ml Inj IVP STA ×2 (16:27→18:05)
[2017-07-08] MEDS ORDERED: Magnesium Oxide 400 mg Tab UD PO STA (16:33)
[2017-07-08] MEDS ORDERED: Potassium & Sodium Phosphate PO STA (16:33)
[2017-07-08 19:26] VITALS: BP 155/75; PULSE 100; RESP 17; O2SAT 99
--- NOTE | 2017-07-09 14:28 | CARD ---
APPROVED REPORT EKG Measurement Heart [id number] MA [id number] <Conclusion> Sinus tachycardia Otherwise normal ECG
== END 2017-07-08 19:26 | disposition home or self-care (01) ==
LOC: H.ER 14:35
DX: F10.20 Alcohol dependence, uncomplicated (principal); R25.1 Tremor, unspecified; E11.9 Type 2 diabetes mellitus without complications; F20.9 Schizophrenia, unspecified; F31.9 Bipolar disorder, unspecified; F41.9 Anxiety disorder, unspecified; I10 Essential (primary) hypertension
CPT/HCPCS: 80053; 80164; 82550; 82948; 83605; 83735; 84100; 85025; 93005; 96374; 96375; 99284; G0480; J1200; J2060; J7040